=== PATIENT | male | born 1950 | race Caucasian/White ===

== ENCOUNTER 2016-10-10 19:24 | Observation (INO) | payer MEDICARE ==
[~2016-10-10 19:24] MED LIST: REGADENOSON INJ 0.4 MG/5 ML DISP.SYRIN IV ONE
[2016-10-10 19:43] LABS: ABSOLUTE BASOPHILS # (AUTO) 0.1 10^3/uL (0.0-0.2); ABSOLUTE EOSINOPHILS # (AUTO) 0.2 10^3/uL (0.0-0.6); ABSOLUTE MONOCYTES (AUTO) 0.8 10^3/uL (0.1-1.4); BASOPHILS % (AUTO) 0.7 % (0-2); EOSINOPHILS % (AUTO) 1.6 % (0-6); HEMATOCRIT 34.6 % (37.9-51.0); HGB HCT DIFFERENCE 1.4; LYMPHOCYTES % (AUTO) 16.4 % (13-45); MEAN CORPUSCULAR HEMOGLOBIN 31.9 pg (27.0-33.4); MEAN CORPUSCULAR HGB CONC 34.8 g/dL (32.0-36.0); MEAN CORPUSCULAR VOLUME 92 fl (80-97); MONOCYTES % (AUTO) 6.8 % (3-13); RED BLOOD COUNT 3.77 10^6/uL (4.35-5.55); RED CELL DISTRIBUTION WIDTH 14.2 % (11.5-14.0); SEGMENTED NEUTROPHILS % (AUTO) 74.5 % (42-78)
--- NOTE | 2016-10-10 19:43 | ER Document Report ---
ED Cardiac - General Mode of Arrival: Medic Information source: Patient TRAVEL OUTSIDE OF THE [place] IN LAST 30 DAYS: No - HPI Patient complains to provider of: Chest pain Associated symptoms: Other - See above <FRANCISCO NYE - Last Filed: 10/11/16 03:25> <BELKIS CANSECO - Last Filed: 10/12/16 21:06> - General Chief Complaint: Chest Pain > 30 Stated Complaint: CHEST PAIN Notes: Patient is a 66 year old male, with a past medical history including triple bypass surgery and [place], who presents to the emergency department complaining of chest pain onset around 1830 today. Patient states that he had just eaten and was sitting on his porch watching his great grandchild when he had mid-back pain , he then moved inside to his lounger and the pain radiated around to his chest right below his sternum. Patient also complains of shortness of breath and chills. Patient denies diaphoresis. Patient reports that his previous heart attack started as back pain. Patient states that he started a new blood pressure medication in June and is not on home air. Patient reports he took 4 baby Aspirin before EMS arrived and was give 4 Nitro treatments en route which helped the pain. PCP: Dr. Caruso Manager Account Management: Dr. Fonseca (FRANCISCO NYE) - Related Data Allergies/Adverse Reactions: No Known Allergies Allergy (Verified 05/05/16 07:54) Home Medications: Current Home Medications Albuterol Sulfate [Ventolin HFA MDI 18 GM] 2 puff IH Q6HP PRN 10/11/16 [History] Aspirin [Ecotrin 81 mg EC Tablet] 81 mg PO DAILY 10/11/16 [History] Diazepam [Valium] 10 mg PO Q8 10/11/16 [History] Gabapentin [Neurontin 400 mg Capsule] 400 mg PO Q12 10/11/16 [History] Insulin Glargine,Hum.rec.anlog [Touzarina Solostar] 30 unit SQ QPM 10/11/16 [ History] Losartan/Hydrochlorothiazide [Hyzaar 100-25 Tablet] 1 tab PO DAILY 10/11/16 [ History] Metformin HCl [Glucophage] 1,000 mg PO WBRKFST 10/11/16 [History] Metformin HCl [Glucophage] 500 mg PO WSUPPER 10/11/16 [History] [place]-3S/Dha/Epa/Fish Oil [Fish Oil 1,200 mg Softgel] 1,200 mg PO DAILY [History] Simvastatin [Zocor 40 mg Tablet] 40 mg PO QPM 10/11/16 [History] Vitamin E (Dl, Acetate) [Vitamin E 400 Unit Capsule] 400 unit PO QHS 10/11/16 [ History] Past Medical History - General Information source: Patient - Social History Smoking Status: Current Every Day Smoker Frequency of alcohol use: None Family History: Reviewed & Not Pertinent - Past Medical History Cardiac Medical History: Reports: Hx Heart Attack - 2004 X2, Hx Hypertension Pulmonary Medical History: Reports: Hx COPD - pre Endocrine Medical History: Reports: Hx Diabetes Mellitus Type 2 Past Surgical History: Reports: Hx Cardiac Surgery - bypass, pace maker, Hx Open Heart Surgery - 2004, Hx Pacemaker - <FRANCISCO NYE - Last Filed: 10/11/16 03:25> Review of Systems - Review of Systems Constitutional: See HPI, Chills. denies: Diaphoresis EENT: No symptoms reported Cardiovascular: See HPI, Chest pain Respiratory: See HPI, Short of breath Gastrointestinal: No symptoms reported Genitourinary: No symptoms reported Male Genitourinary: No symptoms reported Musculoskeletal: No symptoms reported Skin: No symptoms reported Hematologic/Lymphatic: No symptoms reported Neurological/Psychological: No symptoms reported -: Yes All other systems reviewed and negative <FRANCISCO NYE - Last Filed: 10/11/16 03:25> Physical Exam - Vital signs Interpretation: Normal - General General appearance: Appears well, Alert - HEENT Head: Normocephalic, Atraumatic - Respiratory Respiratory status: No respiratory distress Chest status: Nontender Breath sounds: Normal Chest palpation: Normal - Cardiovascular Rhythm: Regular Heart sounds: Normal auscultation Murmur: No Pulses: Normal: Dorsalis pedis - Abdominal Inspection: Normal Distension: No distension Bowel sounds: Normal Tenderness: Nontender Organomegaly: No organomegaly - Extremities General upper extremity: Normal inspection General lower extremity: Normal inspection - Neurological Neuro grossly intact: Yes Cognition: Normal Orientation: AAOx4 Laura Coma Scale Eye Opening: Spontaneous Amish Coma Scale Verbal: Oriented Amish Coma Scale Motor: Obeys Commands Amish Coma Scale Total: 15 Speech: Normal - Psychological Associated symptoms: Normal affect, Normal mood - Skin Skin Temperature: Warm Skin Moisture: Dry Skin Color: Normal <FRANCISCO NYE - Last Filed: 10/11/16 03:25> Course - Laboratory Result Diagrams: 10/10/16 19:30 10/10/16 19:30 <FRANCISCO NYE - Last Filed: 10/11/16 03:25> - Laboratory Result Diagrams: 10/10/16 19:30 10/10/16 19:30 <BELKIS CANSECO - Last Filed: 10/12/16 21:06> - Re-evaluation Re-evalutation: 10/10/16 19:43 Patient presents emergency per with a chief complaint of chest pain started on half prior to arrival. Patient states he was sitting on his porch watch and his grandbaby do bubbles when he started having mid thoracic back pain that radiated around to the front he points to in between his substernal and his epigastric region. He says this is how his heart has presented in the past. He is a chronic smoker with COPD as well. He states the pain is gone now with aspirin and 4 nitroglycerin. Also has a pacemaker and history of hypertension and diabetes. He sees Dr. Charlene Suárez but hasn't seen him for over a year and a half. Currently his EKG shows a paced rhythm. I am not concerned about a thoracic dissection. Blood pressure is stable nonelevated we'll have them do bilateral upper extremity blood pressures good pulses and perfusion distally with no neurological deficits. 10/10/16 21:56 Patient is pain-free hemodynamically stable after nitroglycerin and aspirin. EKG is paced chest x-ray is negative initial set of enzymes are negative. Patient will be admitted to the hospital talked to Dr. Hale in stable condition she has to coincidental elevated lipase but no abdominal pain and epigastric pain right upper quadrant pain history of alcohol or gallbladder problems. Dr. Hale asked if we had some LFTs in there which I have done. He is going to be admitted to the hospital in stable condition. (BELKIS CANSECO) - Vital Signs Vital signs: Temp Pulse Resp BP Pulse Ox 98.0 F 70 20 140/68 H 98 10/11/16 15:21 10/11/16 15:21 10/11/16 15:21 10/11/16 15:21 10/11/16 15:21 - Laboratory Laboratory results interpreted by me: 10/10/16 10/10/16 10/10/16 19:30 19:30 19:30 WBC 12.0 H RBC 3.77 L Hgb 12.0 L Hct 34.6 L RDW 14.2 H Absolute Neutrophils 9.0 H BUN 29 H Creatinine 1.39 H Est GFR (Non-Af Amer) 51 L Glucose 210 H Hemoglobin A1c % NT-Pro-B Natriuret Pep 1350 H Lipase 10/10/16 10/10/16 19:30 19:30 WBC RBC Hgb Hct RDW Absolute Neutrophils BUN Creatinine Est GFR (Non-Af Amer) Glucose Hemoglobin A1c % 7.7 H NT-Pro-B Natriuret Pep Lipase 573.8 H Discharge <FRANCISCO NYE - Last Filed: 10/11/16 03:25> - Discharge Admitting Provider: Hospitalist Unit Admitted: Telemetry <BELKIS CANSECO - Last Filed: 10/12/16 21:06> - Discharge Clinical Impression: elevated lipase Chest pain Qualifiers: Chest pain type: unspecified Qualified Code(s): R07.9 - Chest pain, unspecified Disposition: HOME, SELF-CARE Scribe Attestation: 10/12/16 21:03 i personally performed the services described in the documentation reviewed the documentation recorded by the scribe in my presence and it accurately and completely records my words and actions. (BELKIS CANSECO) Scribe Documentation - Scribe Written by Amna:: amna Souza, [id number] acting as scribe for :: Donald <FRANCISCO NYE - Last Filed: 10/11/16 03:25>
[2016-10-10 19:57] LABS: ANION GAP 11 (5-19); BLOOD UREA NITROGEN 29 mg/dL (7-20); CALCIUM 9.7 mg/dL (8.4-10.2); CARBON DIOXIDE 29 mmol/L (22-30); CHLORIDE 99 mmol/L (98-107); CREATININE RESULT 1.39 mg/dL (0.52-1.25); GLUCOSE 210 mg/dL (75-110); POTASSIUM 4.7 mmol/L (3.6-5.0); SODIUM 138.6 mmol/L (137-145)
[2016-10-10 20:09] LABS: TROPONIN I < 0.012 ng/mL
[2016-10-10] MEDS ORDERED: NORMAL SALINE 1000 ML 2,000 ML IV ONE (21:24)
[2016-10-10] MEDS ORDERED: NITROGLYCERIN 2% OINTMENT 1 GM PACKET TP ONE (21:56)
[2016-10-10] MEDS ORDERED: LACTULOSE SYRUP 20 GM/30 ML UDCUP PO ONE (22:05)
[2016-10-10 22:22] LABS: ALANINE AMINOTRANSFERASE 23 U/L (21-72); ALBUMIN 4.2 g/dL (3.5-5.0); ALKALINE PHOSPHATASE 64 U/L (38-126); ASPARTATE AMINO TRANSFERASE 18 U/L (17-59); BILIRUBIN,DIRECT 0.2 mg/dL (0.0-0.4); BILIRUBIN,TOTAL 0.4 mg/dL (0.2-1.3); TOTAL PROTEIN 6.4 g/dL (6.3-8.2)
[2016-10-10] MEDS ORDERED: DEXTROSE 50%-WATER 25 GM/50 ML DISP.SYRIN IV PRN ×2 (22:27)
[2016-10-10] MEDS ORDERED: ONDANSETRON HCL INJ/PF 4 MG/2 ML SDV IV PRN (22:27)
[2016-10-10] MEDS ORDERED: NITROGLYCERIN 0.4 MG/TAB 25 TAB/BOTTLE SL PRN (22:27)
[2016-10-10] MEDS ORDERED: INSULIN LISPRO 100 UNIT/ML 3 ML VIAL SUBCUT PRN (22:27)
[2016-10-10] MEDS ORDERED: DIAZEPAM 5 MG TABLET PO PRN (22:27)
[2016-10-10] MEDS ORDERED: GLUCAGON,HUMAN RECOMB 1 MG INJ IM PRN (22:27)
[2016-10-10] MEDS ORDERED: DEXTROSE 40% GEL 15 GM TUBE PO PRN ×2 (22:27)
[2016-10-10] MEDS ORDERED: METOPROLOL TARTRATE PF/INJ 5 MG/5 ML SDV IV PRN (22:27)
[2016-10-10] MEDS ORDERED: HEPARIN SOD (PORCINE) 5,000 UNIT/ML 1 ML SYRINGE SUBCUT ONE (22:45)
[2016-10-11 02:59] LABS: TROPONIN I < 0.012 ng/mL
[2016-10-11] MEDS ORDERED: GLUCAGON,HUMAN RECOMB 1 MG INJ SUBCUT PRN (05:28)
[2016-10-11] MEDS ORDERED: DEXTROSE 40% GEL 15 GM TUBE PO PRN ×2 (05:28)
[2016-10-11] MEDS ORDERED: DEXTROSE 50%-WATER 25 GM/50 ML DISP.SYRIN IV PRN ×2 (05:28)
--- NOTE | 2016-10-11 05:39 | PDOC H&P ---
History of Present Illness Admission Date/PCP: 10/10/16 22:27 MARION BALBUENA DO Patient complains of: Chest pain History of Present Illness: BRITTANI VIGIL is a 66 year old male with a past medical history of coronary artery disease and coronary artery bypass grafting in 2004 with a pacemaker and 2012 and prosthetic aortic valve, diabetes, dyslipidemia, neuropathy and anxiety. She was in his usual state of health until approximate 4 hours prior to presentation with an abrupt onset of chest pain after a meal is radiated to the mid back with dullness in nature he was also short of breath with nausea, no palpitations. She states this is similar to pain he had prior to his first [place]. Patient states alleviating factors or aspirin and nitroglycerin. Patient has had no recent cardiac stress test or new medications. Patient is also found to have mildly elevated lipase and left upper and lower quadrant abdominal concerning for constipation and is referred to the hospitalist for admission Past Medical History Cardiac Medical History: Reports: Congestive Heart Failure, Myocardial Infarction - 2004 X2, Hypertension Pulmonary Medical History: Reports: Chronic Obstructive Pulmonary Disease (COPD ) - pre Denies: Asthma, Bronchitis, Pneumonia, Tuberculosis Neurological Medical History: Denies: Seizures Endocrine Medical History: Reports: Diabetes Mellitus Type 2 Renal/ Medical History: Denies: End Stage Renal Disease GI Medical History: Denies: Cirrhosis, Gastroesophageal Reflux Disease, Hepatitis, Hiatal Hernia Musculoskeltal Medical History: Denies: Arthritis Psychiatric Medical History: Reports: Tobacco Dependency Denies: Bipolar Disorder, Depression Hematology: Denies: Anemia, Sickle Cell Disease, Bleeding Tendencies Past Surgical History Past Surgical History: Reports: Pacemaker - Social History Smoking Status: Current Every Day Smoker Drugs: None - Advance Directive Resuscitation Status: Full Code Family History Family History: COPD Parental Family History Reviewed: Yes Children Family History Reviewed: Yes Sibling(s) Family History Reviewed.: Yes Medication/Allergy Home Medications: Aspirin [Aspirin EC] 81 mg PO DAILY 11/13/14 Diazepam [Valium 5 mg Tablet] 10 mg PO DAILY PRN 11/13/14 Fish Oil/Dha/Epa [Fish Oil 1,200 mg Fish Oil] 1,200 mg PO DAILY 11/13/14 Gabapentin 400 mg PO BID 11/13/14 Losartan Potassium [Cozaar 50 mg Tablet] 100 mg PO DAILY 11/13/14 Metformin HCl [Glucophage 500 mg Tablet] 500 mg PO BIDACBS 11/13/14 Simvastatin 40 mg PO QHS 11/13/14 Vitamin E 400 unit PO DAILY 11/13/14 Allergies/Adverse Reactions: No Known Allergies Allergy (Verified 05/05/16 07:54) Review of Systems Constitutional: ABSENT: chills, fever(s), headache(s), weight gain, weight loss Eyes: ABSENT: visual disturbances Ears: ABSENT: hearing changes Cardiovascular: ABSENT: chest pain, dyspnea on exertion, edema, orthropnea, palpitations Respiratory: ABSENT: cough, hemoptysis Gastrointestinal: PRESENT: constipation, nausea. ABSENT: abdominal pain, diarrhea, hematemesis, hematochezia, vomiting Genitourinary: ABSENT: dysuria, hematuria Musculoskeletal: ABSENT: joint swelling Integumentary: ABSENT: rash, wounds Neurological: ABSENT: abnormal gait, abnormal speech, confusion, dizziness, focal weakness, syncope Psychiatric: ABSENT: anxiety, depression, homidical ideation, suicidal ideation Endocrine: ABSENT: cold intolerance, heat intolerance, polydipsia, polyuria Hematologic/Lymphatic: ABSENT: easy bleeding, easy bruising Physical Exam Vital Signs: Temp Pulse Resp BP Pulse Ox 97.6 F 70 19 130/54 H 95 10/11/16 04:00 10/11/16 04:00 10/11/16 04:00 10/11/16 04:00 10/11/16 04:00 General appearance: PRESENT: no acute distress, cooperative Head exam: PRESENT: atraumatic, normocephalic Eye exam: PRESENT: conjunctiva pink, EOMI, PERRLA. ABSENT: scleral icterus Ear exam: PRESENT: normal external ear exam Mouth exam: PRESENT: moist, tongue midline Neck exam: ABSENT: carotid bruit, JVD, lymphadenopathy, thyromegaly Respiratory exam: PRESENT: clear to auscultation evie. ABSENT: rales, rhonchi, wheezes Cardiovascular exam: PRESENT: RRR. ABSENT: diastolic murmur, rubs, systolic murmur Pulses: PRESENT: normal dorsalis pedis pul Vascular exam: PRESENT: normal capillary refill GI/Abdominal exam: PRESENT: hypoactive bowel sounds, rigid, soft, tenderness. ABSENT: ascites, rebound Rectal exam: PRESENT: deferred Extremities exam: PRESENT: full ROM. ABSENT: calf tenderness, clubbing, pedal edema Neurological exam: PRESENT: alert, awake, oriented to person, oriented to place , oriented to time, oriented to situation, CN II-XII grossly intact. ABSENT: motor sensory deficit Psychiatric exam: PRESENT: appropriate affect, normal mood. ABSENT: homicidal ideation, suicidal ideation Skin exam: PRESENT: dry, intact, warm. ABSENT: cyanosis, rash Results Laboratory Results: 10/11/16 01:41 CK-MB (CK-2) 3.10 Troponin I < 0.012 Impressions: Chest X-Ray 10/10/16 19:30 IMPRESSION: NO ACUTE RADIOGRAPHIC FINDING IN THE CHEST. Abdomen X-Ray 10/10/16 22:05 IMPRESSION: NO RADIOGRAPHIC EVIDENCE FOR ACUTE ABDOMINAL DISEASE. Marked CONSTIPATION. Assessment & Plan - Diagnosis (1) Chest pain Qualifiers: Chest pain type: unspecified Qualified Code(s): R07.9 - Chest pain, unspecified Is this a current diagnosis for this admission?: YesPlan: History of coronary disease and CABG with pacemaker no recent stress test to be monitored on a telemetry bed with Cardiolite stress test ordered and symptomatic management with evaluation of risk factors (2) Tobacco abuse Is this a current diagnosis for this admission?: YesPlan: Tobacco Dependence patient received tobacco cessation counseling and offered nicotine replacement options (3) Elevated lipase Is this a current diagnosis for this admission?: YesPlan: Unclear etiology LFTs unremarkable though severely constipated will order clear liquids as tolerated and consider reevaluation (4) Constipation Is this a current diagnosis for this admission?: YesPlan: Suggested by history verified by exam and 2 views of the abdomen. Enema and lactulose to clear - Time Time Spent: 50 to 70 Minutes - Inpatient Certification Medical Necessity: Need Close Monitoring Due to Risk of Patient Decompensation
[2016-10-11] MEDS: HEPARIN SOD (PORCINE) 5,000 UNIT/ML 1 ML SYRINGE SUBCUT SCH ×2 (06:23→13:38)
[2016-10-11 07:43] LABS: CHOLESTEROL 110.56 mg/dL (0-200); CREATINE KINASE 55 U/L (55-170); Direct HDL 38 mg/dL (>40); TRIGLYCERIDES 85 mg/dL (<150)
[2016-10-11 07:53] LABS: DIRECT LDL 49 mg/dL (<100)
[2016-10-11 07:54] LABS: CREATINE KINASE MB 2.97 ng/mL (<4.55); TROPONIN I 0.015 ng/mL
--- NOTE | 2016-10-11 08:44 | EKG REPORT ---
SEVERITY:- ABNORMAL ECG - ATRIAL-VENTRICULAR DUAL-PACED RHYTHM : Confirmed by: Deirdre Sarkar 11-Oct-2016 08:43:16
[2016-10-11] MEDS ORDERED: ASPIRIN 81 MG TABLET, ENT COATED PO SCH (10:00)
[2016-10-11] MEDS ORDERED: LOSARTAN POTASSIUM 50 MG TABLET PO SCH (10:00)
[2016-10-11] MEDS ORDERED: GABAPENTIN 400 MG CAPSULE PO SCH (10:00)
--- NOTE | 2016-10-11 13:46 | DRAGON STRESS TEST REPORT ---
Intravenous Lexiscan Cardiolite stress test using single photon emmision computerized tomography. Date of procedure: 10/11/2016 Ordering Provider: Dr. Ed Hale Indication: Chest pain. The patient has a history of coronary artery disease, history of old [place], history of coronary artery bypass graft surgery, and prosthetic aortic valve replacement. Coronary risk factors: Age, [id number] diabetes mellitus type II, hypertension, dyslipidemia, tobacco abuse, and family history of coronary artery disease. Resting EKG: A V Paced rhythm, and atrial tracking and ventricle paced rhythm. Stress EKG: Non diagnostic of ischemia due to paced rhythm. The patient no chest pain or discomfort, and there were no arrhythmias seen Reason for termination: Protocol. Conclusions: Normal EKG and hemodynamic response to IV Lexiscan. Nuclear data: At rest the patient was given 12.41 millicuries of technetium 99m sestamibi injected intravenously. As per protocol rest non gated SPECT images were obtained. Subsequently the patient was given intravenous Lexiscan at a dose of 0.4 mg in 5 mL intravenously, followed by flush with normal saline. Subsequently the stress dose of 35.9 millicuries of technetium 99m sestamibi was injected intravenously. As per protocol stress gated images were obtained. Nuclear interpretation: Review of images showed that there was a perfusion defect involving the inferior wall and a small area of the apex in both the rest and stress images. These areas of decreased motion contraction and thickening by gated study. The rest of the segments of the myocardium had normal perfusion at rest, and normal perfusion post stress with IV Lexiscan. The rest of the segments of the myocardium had normal thickening by gated study. There is severe global hypokinesis. The left ventricle was dilated consistent with cardiomyopathy. T. I D. ratio was normal at 1.11. Computer read rest, and stress left ventricular ejection fraction were 33 %, and 32 %, respectively. Conclusion: 1. There is no scintigraphic evidence of Lexiscan induced myocardial ischemia. 2. There is scintigraphic evidence of myocardial infarction/scar involving the inferior wall, and a small area of the LV apex. 3. The left ventricle is dilated with severely decreased ejection fraction consistent with ischemic cardiomyopathy. Recommendations: 1. Aggressive treatment of coronary artery disease and cardiomyopathy. 2. Check echocardiographic for LV ejection fraction correlation. 3. If LV ejection fraction is 35% or below but echocardiographically, then patient may need an upgrade from a permanent pacemaker to an AICD. 4. Aggressive risk factor modification, including smoking cessation counseling , and aggressive medical treatment of underlying co-morbidities. MTDD
[2016-10-11 14:13] LABS: CREATINE KINASE MB 2.84 ng/mL (<4.55)
[2016-10-11 14:15] LABS: TROPONIN I < 0.012 ng/mL
[2016-10-11 15:23] VITALS: BP 140/68
[2016-10-11] MEDS ORDERED: SIMVASTATIN 40 MG TABLET PO SCH (22:00)
--- NOTE | 2016-10-24 18:02 | PDOC DISCHARGE SUMMARY ---
General - Admit/Disc Date/PCP Admission Date/Primary Care Provider: 10/10/16 22:27 MARION BALBUENA, Discharge Date: 10/11/16 - Discharge Diagnosis (1) Chest pain Is this a current diagnosis for this admission?: Yes (2) Constipation Is this a current diagnosis for this admission?: Yes (3) Elevated lipase Is this a current diagnosis for this admission?: Yes (4) Tobacco abuse Is this a current diagnosis for this admission?: Yes - Additional Information Resuscitation Status: Full Code Discharge Diet: Cardiac Discharge Activity: Activity As Tolerated Home Medications: Albuterol Sulfate [Ventolin HFA MDI 18 GM] 2 puff IH Q6HP PRN 10/11/16 Aspirin [Ecotrin 81 mg EC Tablet] 81 mg PO DAILY 10/11/16 Diazepam [Valium] 10 mg PO Q8 10/11/16 Gabapentin [Neurontin 400 mg Capsule] 400 mg PO Q12 10/11/16 Insulin Glargine,Hum.rec.anlog [[place] Solostar] 30 unit SQ QPM 10/11/16 Isosorbide Mononitrate [Imdur 30 mg Tablet.er] 30 mg PO DAILY #30 tab.er.24h Losartan/Hydrochlorothiazide [Hyzaar 100-25 Tablet] 1 tab PO DAILY 10/11/16 Metformin HCl [Glucophage] 1,000 mg PO WBRKFST 10/11/16 Metformin HCl [Glucophage] 500 mg PO WSUPPER 10/11/16 Metoprolol Succinate [Toprol Xl 25 mg Tab.sr] 25 mg PO BID #60 tab.sr.24h [place]-3S/Dha/Epa/Fish Oil [Fish Oil 1,200 mg Softgel] 1,200 mg PO DAILY Simvastatin [Zocor 40 mg Tablet] 40 mg PO QPM 10/11/16 Vitamin E (Dl, Acetate) [Vitamin E 400 Unit Capsule] 400 unit PO QHS 10/11/16 History of Present Illness Patient complains of: chest pain History of Present Illness: BRITTANI VIGIL is a 66 year old male with a past medical history of coronary artery disease and coronary artery bypass grafting in 2004 with a pacemaker and 2012 and prosthetic aortic valve, diabetes, dyslipidemia, neuropathy and anxiety. She was in his usual state of health until approximate 4 hours prior to presentation with an abrupt onset of chest pain after a meal is radiated to the mid back with dullness in nature he was also short of breath with nausea, no palpitations. She states this is similar to pain he had prior to his first [place]. Patient states alleviating factors or aspirin and nitroglycerin. Patient has had no recent cardiac stress test or new medications. Patient is also found to have mildly elevated lipase and left upper and lower quadrant abdominal concerning for constipation and is referred to the hospitalist for admission Hospital Course Hospital Course: Patient was admitted with a history of chest pain He was admitted to a telemetry unit and was monitored overnight; 10/11/16 10/11/16 10/11/16 01:41 07:15 13:24 CK-MB (CK-2) 2.84 Troponin I < 0.012 0.015 < 0.012 serial cardiac enzymes were negative He underwent a Cardiolite stress test; there was no evidence of induced ischemia Medical management was suggested Patient remained stable and was discharged to follow up with his primary care physician and sprigger Physical Exam Vital Signs: Temp Pulse Resp BP Pulse Ox 98.0 F 70 20 140/68 H 98 10/11/16 15:21 10/11/16 15:21 10/11/16 15:21 10/11/16 15:21 10/11/16 15:21 Results Laboratory Results: 10/11/16 10/11/16 10/11/16 01:41 07:15 07:15 Creatine Kinase 55 CK-MB (CK-2) 3.10 2.97 Troponin I < 0.012 0.015 10/11/16 13:24 Creatine Kinase CK-MB (CK-2) 2.84 Troponin I < 0.012 EKG Comments: ATRIAL-VENTRICULAR DUAL-PACED RHYTHM Impressions: Chest X-Ray 10/10/16 19:30 IMPRESSION: NO ACUTE RADIOGRAPHIC FINDING IN THE CHEST. Abdomen X-Ray 10/10/16 22:05 IMPRESSION: NO RADIOGRAPHIC EVIDENCE FOR ACUTE ABDOMINAL DISEASE. Marked CONSTIPATION. Plan Discharge Plan: Discharge home Time Spent: Less than 30 Minutes
== END 2016-10-11 15:55 | disposition home or self-care (01) ==
LOC: ER 19:24 → UNDOADMOB 22:07 → EH 22:07 → 5 10-11 00:19
PROVIDERS: ADMIT Internal Medicine; ATTEND Internal Medicine
DX: R07.9 Chest pain, unspecified (principal); K59.00 Constipation, unspecified; R74.8 Abnormal levels of other serum enzymes; Z79.82 Long term (current) use of aspirin; E78.5 Hyperlipidemia, unspecified; F17.200 Nicotine dependence, unspecified, uncomplicated; F41.9 Anxiety disorder, unspecified; I11.0 Hypertensive heart disease with heart failure; I50.9 Heart failure, unspecified; E11.9 Type 2 diabetes mellitus without complications; G62.9 Polyneuropathy, unspecified; R68.83 Chills (without fever); I25.10 Atherosclerotic heart disease of native coronary artery without angina pectoris; J44.9 Chronic obstructive pulmonary disease, unspecified; M54.6 Pain in thoracic spine; I25.2 Old myocardial infarction; Z79.4 Long term (current) use of insulin; Z79.899 Other long term (current) drug therapy; Z95.1 Presence of aortocoronary bypass graft; Z95.0 Presence of cardiac pacemaker; Z95.2 Presence of prosthetic heart valve; Z82.5 Family history of asthma and other chronic lower respiratory diseases
CPT/HCPCS: 93005; 99285; 96360; 36415 ×2; 82553 ×2; 82962; 82550; 83690; 85025; 80076; 80048; 84484 ×2; 83036; 80061; 83880; 93017; 74020; 71010; 78452; 93010; G0378 ×2; A9500; J2785; A9270 ×5; J1644; J3490; J7030; Q9969